=== PATIENT | male | born 1950 | race Caucasian/White ===

== ENCOUNTER 2017-03-26 09:22 | Emergency (ER) | payer MEDICARE ==
[~2017-03-26] VITALS: Ht 168.9 cm; Wt 105.0 kg
[~2017-03-26 09:22] MED LIST: ASPIRIN EC325 MG PO; BYSTOLIC5 MG PO; CLORPRES OR; CLORPRES PO; COLACE100 MG PO; FENOFIBRATE134 MG PO; FINASTERIDE5 MG PO; FLOMAX0.4 M1 PO; FLUARIX QUADRIV1 INJ IM; FLUZONE SPLT1 M1 IM; INFANRIX IM; ISOSORBIDE DINI20 MG OR; LABETALOL100 MG PO; LIPITOR40 MG PO; MULTIVITAM10 OR; ONE DAILY ADULTS50 + PO; PNEUMOVAX 23 IM; PREVACID30 M2 PO; VITAMIN C1000 MG OR; ZOSTAVAX IM; ZYRTEC10 MG PO
[2017-03-26 09:52] LABS: HEMOGLOBIN 14.5 g/dl (14.0-18.0); IMMATURE GRANULOCYTES 0.4 % (0.0-1.0); MEAN CELL VOLUME 90.2 fL CALC (80.0-100.0); MEAN CORPUSCULAR HGB 29.7 pG CALC (26.0-32.0); NEUT# 7.25 thou/uL (1.82-7.42); RED BLOOD COUNT 4.88 mill/uL (4.70-6.10); RED CELL DISTRI WIDTH 13.2 % (11.5-15.5)
[2017-03-26 10:06] LABS: ALBUMIN 4.2 g/dL (3.2-5.0); ALKALINE PHOSPHATASE 73 u/l (38-126); ANION GAP 19 (6-22 (CALC)); BILIRUBIN, TOTAL 0.9 mg/dL (0.0-1.4); BUN 18 mg/dL (8-23); BUN/CREATININE RATIO 21 (12-20 (CALC)); CALCIUM 9.6 mg/dL (8.4-10.2); CARBON DIOXIDE 24 mmol/l (22-30); CHLORIDE 106 mmol/l (95-108); CREATININE 0.9 mg/dL (0.7-1.3); GFR > 60 ML/MIN (>=60 (CALC)); GFR FOR AFR.AMER. > 60 ML/MIN (>=60 (CALC)); GLUCOSE 116 mg/dL (82-115); POTASSIUM 4.4 mmol/l (3.5-5.1); SGOT/AST 40 u/l (19-48); SGPT/ALT 74 u/l (11-66); SODIUM 144 mmol/l (137-146)
[2017-03-26 10:08] LABS: PROTHROMBIN TIME 10.7 SECONDS (9.0-12.5)
[2017-03-26] MEDS ORDERED: LISINOPRIL10 MG PO (10:08)
[2017-03-26] MEDS ORDERED: METOPROL TAR25 MG PO (10:09)
[2017-03-26] MEDS ORDERED: BENADRYL 25MG C25 MG PO (10:11)
[2017-03-26] MEDS ORDERED: ATORVASTATIN CA40 MG PO (10:15)
[2017-03-26] MEDS ORDERED: OMEPRAZOLE10 MG PO (10:17)
[2017-03-26 10:18] LABS: MYOGLOBIN 86 ng/mL (0 - 121)
[2017-03-26 12:43] VITALS: BP 131/82
== END 2017-03-26 11:57 | disposition short-term general hospital (02) ==
LOC: ED 09:22
PROVIDERS: Emergency Medicine
DX: I26.99 Other pulmonary embolism without acute cor pulmonale (principal); R55 Syncope and collapse; I45.10 Unspecified right bundle-branch block; I10 Essential (primary) hypertension; I49.9 Cardiac arrhythmia, unspecified; R06.02 Shortness of breath; R11.0 Nausea; R53.1 Weakness
CPT/HCPCS: J1650

== ENCOUNTER 2017-09-19 18:29 | Emergency (ER) | payer MEDICARE ==
[~2017-09-19] VITALS: Ht 168.9 cm; Wt 109.0 kg
[~2017-09-19 18:29] MED LIST changes: +ATORVASTATIN CA40 MG PO; +BENADRYL 25MG C25 MG PO; +LISINOPRIL10 MG PO; +METOPROL TAR25 MG PO; +OMEPRAZOLE10 MG PO
[2017-09-19 20:34] LABS: HEMOGLOBIN 14.5 g/dl (14.0-18.0); IMMATURE GRANULOCYTES 0.4 % (0.0-1.0); MEAN CELL VOLUME 88.2 fL CALC (80.0-100.0); MEAN CORPUSCULAR HGB 28.4 pG CALC (26.0-32.0); MEAN CORPUSCULAR HGB CONC 32.2 g/L CALC (32.0-36.0); NEUT# 8.41 thou/uL (1.82-7.42); RED BLOOD COUNT 5.1 mill/uL (4.70-6.10); RED CELL DISTRI WIDTH 14.4 % (11.5-15.5)
[2017-09-19 20:36] LABS: URINE BILIRUBIN - DIPSTICK NEGATIVE (NEGATIVE); URINE BLOOD DIPSTICK MODERATE (NEGATIVE); URINE COLOR YELLOW; URINE GLUCOSE - DIPSTICK NEGATIVE (NEGATIVE); URINE KETONE NEGATIVE (NEGATIVE); URINE LEUK ESTERASE NEGATIVE (NEGATIVE); URINE NITRITE - DIPSTICK NEGATIVE (Negative); URINE PH 5.5 (4.5-8.0); URINE PROTEIN - DIPSTICK NEGATIVE (NEG-TRACE); URINE SPECIFIC GRAVITY 1.025; URINE UROBILINOGEN - DIPSTICK 0.2 E.U./dL (0.2)
[2017-09-19 20:52] LABS: ALBUMIN 4.6 g/dL (3.2-5.0); ALKALINE PHOSPHATASE 84 u/l (38-126); ANION GAP 21 (6-22 (CALC)); BUN 21 mg/dL (8-23); BUN/CREATININE RATIO 20 (12-20 (CALC)); CARBON DIOXIDE 25 mmol/l (22-30); CHLORIDE 99 mmol/l (95-108); GFR > 60 ML/MIN (>=60 (CALC)); GFR FOR AFR.AMER. > 60 ML/MIN (>=60 (CALC)); POTASSIUM 4.3 mmol/l (3.5-5.1); SGOT/AST 27 u/l (19-48); SGPT/ALT 56 u/l (11-66); SODIUM 141 mmol/l (137-146); TOTAL PROTEIN 7.8 g/dL (6.3-8.2)
[2017-09-19 20:55] LABS: URINE CLARITY CLEAR
[2017-09-19 21:23] LABS: URINE SQUAMOUS EPITHELIAL CELL FEW EPI/hpf (0-FEW)
[2017-09-20] MEDS ORDERED: ZITHROMAX TRI-500 MG PO (00:04)
[2017-09-20 00:18] VITALS: BP 134/64
== END 2017-09-20 00:20 | disposition home or self-care (01) ==
LOC: ED 18:29
PROVIDERS: Family Medicine
DX: J18.9 Pneumonia, unspecified organism (principal); R09.1 Pleurisy; R31.9 Hematuria, unspecified; N28.1 Cyst of kidney, acquired; I10 Essential (primary) hypertension; Z86.711 Personal history of pulmonary embolism; Z79.02 Long term (current) use of antithrombotics/antiplatelets

== ENCOUNTER 2022-09-08 10:23 | Day surgery (SDC) | payer MEDICARE ==
[~2022-09-08] VITALS: Ht 172.7 cm; Wt 97.1 kg
[~2022-09-08 10:23] MED LIST changes: +BETIMOL0.5 % OD; +ELIQUIS5 MG PO; +ZITHROMAX TRI-500 MG PO
[2022-09-08 14:17] VITALS: BP 165/65
== END 2022-09-08 14:25 | disposition home or self-care (01) ==
LOC: ORM 10:23
PROVIDERS: ATTEND Orthopaedic Surgery
PROC: 0SBD4ZZ Excision of Left Knee Joint, Percutaneous Endoscopic Approach (ICD-10-PCS; principal; 2022-09-08)
PROC: 0SBD4ZZ Excision of Left Knee Joint, Percutaneous Endoscopic Approach (ICD-10-PCS; 2022-09-08)
PROC: 3E0U33Z Introduction of Anti-inflammatory into Joints, Percutaneous Approach (ICD-10-PCS; 2022-09-08)
DX: S83.232A Complex tear of medial meniscus, current injury, left knee, initial encounter (principal); S83.272A Complex tear of lateral meniscus, current injury, left knee, initial encounter; M65.9 Synovitis and tenosynovitis, unspecified; M94.262 Chondromalacia, left knee; I10 Essential (primary) hypertension; X58.XXXA Exposure to other specified factors, initial encounter
CPT/HCPCS: J0131; J1100

== ENCOUNTER 2022-09-08 16:57 | Emergency (ER) | payer OTHER, MEDICARE ==
[~2022-09-08] VITALS: Ht 172.7 cm; Wt 97.1 kg
[2022-09-08 17:35] VITALS: BP 173/80
== END 2022-09-08 17:40 | disposition home or self-care (01) | DRG 921 ==
LOC: ED 16:57
DX: M96.830 Postprocedural hemorrhage of a musculoskeletal structure following a musculoskeletal system procedure (principal); Y83.9 Surgical procedure, unspecified as the cause of abnormal reaction of the patient, or of later complication, without mention of misadventure at the time of the procedure; I10 Essential (primary) hypertension